=== PATIENT | female | born 1970 | race Caucasian/White ===

== ENCOUNTER → 2016-07-19 | Outpatient (CLI) | payer MEDICAID ==
[2016-07-19 17:04] LABS: HEMATOCRIT 43.5 % (36.0-47.0); HEMOGLOBIN 14.5 g/dL (12.0-15.5); MEAN CORPUSCULAR HEMOGLOBIN 29.3 pg (27.0-33.4); MEAN CORPUSCULAR HGB CONC 33.4 g/dL (32.0-36.0); MEAN CORPUSCULAR VOLUME 88 fl (80-97); RED BLOOD COUNT 4.96 10^6/uL (3.72-5.28); RED CELL DISTRIBUTION WIDTH 13.7 % (11.5-14.0); WHITE BLOOD COUNT 9.6 10^3/uL (4.0-10.5)
[2016-07-19 17:25] LABS: ALANINE AMINOTRANSFERASE 47 U/L (9-52); ALBUMIN 4.3 g/dL (3.5-5.0); ALKALINE PHOSPHATASE 106 U/L (38-126); AMYLASE 54 U/L (30-110); ANION GAP 14 (5-19); ASPARTATE AMINO TRANSFERASE 36 U/L (14-36); BILIRUBIN,DIRECT 0.3 mg/dL (0.0-0.4); BILIRUBIN,TOTAL 0.5 mg/dL (0.2-1.3); BLOOD UREA NITROGEN 10 mg/dL (7-20); CALCIUM 9.7 mg/dL (8.4-10.2); CARBON DIOXIDE 24 mmol/L (22-30); CHLORIDE 103 mmol/L (98-107); CREATININE RESULT 0.78 mg/dL (0.52-1.25); GLUCOSE 84 mg/dL (75-110); LIPASE 62.2 U/L (23-300); SODIUM 140.6 mmol/L (137-145); TOTAL PROTEIN 7.3 g/dL (6.3-8.2)
== END ==
LOC: RAD 14:57
PROVIDERS: ATTEND Nurse Practitioner Family
DX: R10.2 Pelvic and perineal pain (principal); D25.9 Leiomyoma of uterus, unspecified
CPT/HCPCS: 36415; 76830; 76856; 80053; 82150; 83690; 85027

== ENCOUNTER → 2016-12-06 | Outpatient (CLI) | payer MEDICAID ==
--- NOTE | 2016-12-06 09:04 | RADIOLOGY REPORT (SQ) ---
EXAM DESCRIPTION: CHEST PA/LATERAL COMPLETED DATE/TIME: 12/06/2016 7:52 am REASON FOR STUDY: COUGH COMPARISON: 12/04/2015 two-view chest EXAM PARAMETERS: NUMBER OF VIEWS: two views TECHNIQUE: Digital Frontal and Lateral radiographic views of the chest acquired. RADIATION DOSE: NA LIMITATIONS: none FINDINGS: LUNGS AND PLEURA: No opacities, masses or pneumothorax. No pleural effusion. MEDIASTINUM AND HILAR STRUCTURES: No masses or contour abnormalities. HEART AND VASCULAR STRUCTURES: Heart normal size. No evidence for failure. BONES: No acute findings. HARDWARE: None in the chest. OTHER: No other significant finding. IMPRESSION: NO SIGNIFICANT RADIOGRAPHIC FINDING IN THE CHEST. TECHNICAL DOCUMENTATION: JOB ID: [id number] [employer]- All Rights Reserved
== END ==
LOC: OD 07:44
PROVIDERS: ATTEND Nurse Practitioner Family
DX: R05 Cough (principal)
CPT/HCPCS: 71020

== ENCOUNTER 2018-06-07 20:12 | Emergency (ER) | payer MEDICAID, OTHER ==
--- NOTE | 2018-06-07 21:40 | ER Document Report ---
ED General - General Chief Complaint: Fall Injury Stated Complaint: FALL/UPPER BODY PAIN Time Seen by Provider: 06/07/18 21:14 Primary Care Provider: EMRE GOTTI NP [Primary Care Provider] - Follow up as needed Notes: Patient is a 47-year-old female without chronic medical problems, presents with back and head pain after falling over 1 of her dogs. States that she tripped over the dog, fell directly onto the back of her head as well as her low back. Did not lose consciousness. States that she was able to walk inside the house and ask for help. She denies any nausea, vomiting, weakness, numbness or confusion. Does not use any form of anti-coagulation. She does note a constant, throbbing, aching pain to the back of her head as well as her low back since the fall. She has not tried nothing to relieve the pain. Moving or walking seems to worsen the pain. She has not seen her primary care physician regarding today's concerns. TRAVEL OUTSIDE OF THE [place] IN LAST 30 DAYS: No - Related Data Allergies/Adverse Reactions: Penicillins Allergy (Unverified 07/03/10 10:24) Sulfa (Sulfonamide Antibiotics) Allergy (Unverified 07/03/10 10:25) Past Medical History - General Information source: Patient - Social History Smoking Status: Never Smoker Chew tobacco use (# tins/day): No Frequency of alcohol use: None Drug Abuse: None Lives with: Family Family History: Reviewed & Not Pertinent Patient has suicidal ideation: No Patient has homicidal ideation: No Endocrine Medical History: Reports: Hx Diabetes Mellitus Type 2 Renal/ Medical History: Denies: Hx Peritoneal Dialysis Past Surgical History: Reports: Hx Section - x2 Review of Systems - Review of Systems Notes: Constitutional: Negative for fever. Eyes: Negative for visual changes. ENT: Negative for facial injury Cardiovascular: Negative for chest injury. Respiratory: Negative for shortness of breath. Gastrointestinal: Negative for abdominal injury. Genitourinary: Negative for genital injury Musculoskeletal: Positive for low back injury Skin: Negative for laceration/abrasions. Neurological: Positive for head injury. Physical Exam - Vital signs Vitals: Temp Pulse Resp BP Pulse Ox 98.3 F 100 18 120/88 H 97 06/07/18 20:19 06/07/18 20:19 06/07/18 20:19 06/07/18 20:19 06/07/18 20:19 Interpretation: Normal Notes: PHYSICAL EXAMINATION: GENERAL: Well-appearing, no acute distress. HEAD: Atraumatic, normocephalic. EYES: Pupils equal round and reactive to light, extraocular movements intact, sclera anicteric, conjunctiva are normal. ENT: nares patent, no oral pharyngeal trauma. No hemotympanum, no Cohen's sign, no raccoon eyes. NECK: No midline cervical spine tenderness. Patient able to move their head to 45 bilaterally without any discomfort. LUNGS: Breath sounds clear to auscultation bilaterally and equal. No wheezes rales or rhonchi. HEART: Regular rate and rhythm without murmurs. CHEST WALL: No ecchymosis over the chest wall. ABDOMEN: Soft, nontender, normoactive bowel sounds. No guarding, no rebound. No abdominal bruising EXTREMITIES: Normal range of motion, no pitting or edema. No long bone deformities. BACK: No midline spinal tenderness, step-offs, or deformities. NEUROLOGICAL: Face symmetric. Tongue protrudes midline. Extraocular motions intact. Pupils are 2 mm and equally reactive. Normal speech, normal gait. 5 out of 5 strength in both the distal and proximal upper and lower extremities bilaterally. Sensation is grossly intact throughout. Finger to nose testing normal. Pronator drift normal. PSYCH: Normal mood, normal affect. SKIN: Warm, Dry, normal turgor, no rashes or lesions noted. Course - Re-evaluation Re-evalutation: 06/07/18 21:37 Presentation of a well patient in no acute distress, vitals within normal limits after a fall over her dog. No focal neurologic deficits on exam, no evidence of basilar skull fracture on exam without evidence of hemotympanum, raccoon eyes, or periauricular hematoma. No papilledema. Patient is not on anticoagulation. GCS is 15. No loss of consciousness. No episodes of vomiting. Patient is therefore negative via [place] head CT criteria and CT imaging will not be obtained at this time. Patient also evaluated by nexus criteria and found to be negative. Patient is also negative by icelandic C-spine criteria. No clinical evidence to suggest increased risk of cervical spine fracture. No indication for further imaging of the cervical spine. Patient has no focal deformities or limited range of motion in any joint space to indicate need for extremity imaging. Chest and abdominal exam are benign without any focal tenderness, shortness of breath, or bruising over the chest or abdominal wall. Patient has no flank tenderness. There is no obvious findings on trauma exam today and therefore no further imaging or evaluation will be obtained at this time. I've instructed the patient to return to emergency room immediately should they have any worsening or new symptoms that are concerning to them. - Vital Signs Vital signs: Temp Pulse Resp BP Pulse Ox 98.2 F 94 16 126/73 H 98 06/07/18 21:50 06/07/18 21:50 06/07/18 21:50 06/07/18 21:50 06/07/18 21:50 Discharge - Discharge Clinical Impression: Fall Qualifiers: Encounter type: initial encounter Qualified Code(s): W19.XXXA - Unspecified fall, initial encounter Head trauma Qualifiers: Encounter type: initial encounter Qualified Code(s): S09.90XA - Unspecified injury of head, initial encounter Low back pain Qualifiers: Chronicity: acute Back pain laterality: bilateral Sciatica presence: without sciatica Qualified Code(s): M54.5 - Low back pain Condition: Good Disposition: HOME, SELF-CARE Additional Instructions: You have been seen in the Emergency Department (ED) today following a fall. Your workup today did not reveal any injuries that require you to stay in the hospital. You can expect, though, to be stiff and sore for the next several days. You can take ibuprofen 600 mg every 6 hours as needed for pain. You can apply a hot pack or electric heating pad to the sore areas. You can also use topical "Aspercreme with lidocaine" to sore areas as needed. Please follow up with your primary care doctor as soon as possible regarding today's ED visit and your recent accident. Call your doctor or return to the ED if you develop a sudden or severe headache, confusion, slurred speech, facial droop, weakness or numbness in any arm or leg, extreme fatigue, vomiting more than two times, severe abdominal pain, or other symptoms that concern you. Referrals: EMRE GOTTI NP [Primary Care Provider] - Follow up as needed
[2018-06-07 21:56] VITALS: BP 126/73
== END 2018-06-07 21:52 | disposition home or self-care (01) ==
LOC: ER 20:12
DX: S09.90XA Unspecified injury of head, initial encounter (principal); M54.5 Low back pain; M54.9 Dorsalgia, unspecified; R51 Headache; W01.0XXA Fall on same level from slipping, tripping and stumbling without subsequent striking against object, initial encounter; E11.9 Type 2 diabetes mellitus without complications
CPT/HCPCS: 99283